=== PATIENT | male | born 1985 | race Asian ===

== ENCOUNTER 2017-03-28 13:01 | Emergency (ER) | payer BC, OTHER ==
--- NOTE | 2017-03-28 13:36 | ERPHSYRPT ---
- History of Present Illness Time Seen by Provider: 03/28/17 13:26 Source: patient Exam Limitations: no limitations Patient Subjective Stated Complaint: cough, fever, body aches since wednesday Triage Nursing Assessment: c/o body aches and cough for two days. states chest hurts very bad when he coughs. skin w/d, color normal, resp easy. states has coughed up yellow sputum. Physician History: 31-year-old male arrives with complaint of cough fever congestion generalized aches symptoms for 2 days. Patient states his cough is been productive of dark yellow sputum. No vomiting no diarrhea. Past medical history is negative. Past surgical history is negative. Social history positive tobacco use. Timing/Duration: day(s) (2 days) Severity: moderate Modifying Factors: Improves With: nothing Associated Symptoms: cough, fever, malaise, No nausea, No vomiting, No abdominal pain, No shortness of breath, No heartburn, No diaphoresis, No chest pain, No headaches, No loss of appetite, No rash, No syncope, No seizure, No weakness Allergies/Adverse Reactions: No Known Drug Allergies Allergy (Unverified 03/28/17 13:14) Hx Tetanus, Diphtheria Vaccination/Date Given: No Hx Influenza Vaccination/Date Given: No Hx Pneumococcal Vaccination/Date Given: No - Review of Systems Constitutional: Fever, Malaise, No Chills, No Fatigue, No Lethargy, No Night Sweats, No Weakness, No Weight Loss Eyes: No Symptoms Ears, Nose, & Throat: Nose Congestion, Nose Discharge, No Ear Pain, No Ear Discharge, No Hearing Changes, No Tinnitus, No Sinus Drainage, No Epistaxis, No Mouth Pain, No Mouth Swelling, No Loose Teeth, No Throat Pain, No Throat Swelling, No Hoarse, No Painful Swallowing, No Snoring, No Stridor Respiratory: Cough Cardiac: No Chest Pain, No Edema, No Syncope Abdominal/Gastrointestinal: No Abdominal Pain, No Nausea, No Vomiting, No Diarrhea Genitourinary Symptoms: No Dysuria Musculoskeletal: Myalgias, No Arthralgias, No Back Pain, No Neck Pain, No Deformity, No Fall, No Injury, No Joint Redness, No Joint Pain, No Joint Swelling Skin: No Rash Neurological: No Dizziness, No Focal Weakness, No Sensory Changes Psychological: No Symptoms Endocrine: No Symptoms All Other Systems: Reviewed and Negative - Past Medical History Pertinent Past Medical History: No - Past Surgical History Past Surgical History: No - Social History Smoking Status: Current every day smoker How long have you smoked: 10 Exposure to second hand smoke: No Drug Use: none Patient Lives Alone: No - Nursing Vital Signs Nursing Vital Signs: Initial Vital Signs Temperature 98.7 F 03/28/17 13:08 Pulse Rate 60 03/28/17 13:08 Respiratory Rate 16 03/28/17 13:08 Blood Pressure 123/68 03/28/17 13:08 O2 Sat by Pulse Oximetry 100 03/28/17 13:08 Pain Scale Pain Intensity 6 - Physical Exam General Appearance: mild distress Eye Exam: PERRL/EOMI, eyes nml inspection Ears, Nose, Throat Exam: normal ENT inspection, TMs normal, pharynx normal, moist mucous membranes Neck Exam: normal inspection, non-tender, supple, full range of motion Respiratory Exam: normal breath sounds, lungs clear, No respiratory distress Cardiovascular Exam: regular rate/rhythm, normal heart sounds, normal peripheral pulses Gastrointestinal/Abdomen Exam: soft, normal bowel sounds, No tenderness, No mass Back Exam: normal inspection, normal range of motion, No CVA tenderness, No vertebral tenderness Extremity Exam: normal inspection, normal range of motion, pelvis stable Neurologic Exam: alert, oriented x 3, cooperative, normal mood/affect, nml cerebellar function, nml station & gait, sensation nml, No motor deficits Skin Exam: normal color, warm, dry, No rash Lymphatic Exam: No adenopathy SpO2 Interpretation: normal (100%) SpO2: 100 Oxygen Delivery: Room Air - Course Nursing assessment & vital signs reviewed: Yes - Radiology Exams Chest X-ray Interpretation: Interpreted by me, Other (no acute disease process) Ordered Tests: Active Orders 24 hr Category Date Time Status CHEST 1 VIEW (PORTABLE) Stat Exams 03/28/17 13:31 Taken - Progress Progress: improved Progress Note: 03/28/17 14:02 31-year-old male arrives with complaint of cough fever congestion generalized aches symptoms for 2 days. No vomiting no diarrhea Chest x-ray unremarkable. This is a height of the flu symptoms symptoms are classic for the flu Will treat patient for influenza with Tamiflu. Will also write for Zithromax as the patient is complaining of a dark colored sputum. - Departure Time of Disposition: 14:03 Departure Disposition: Home Clinical Impression: Influenza, Bronchitis Condition: Fair Critical Care Time: No Referrals: Provider,Unknown [Primary Care Provider] - Instructions: Cough, Adult (DC) Additional Instructions: Return home. Plenty of fluids. Zithromax [id number] as directed. Tamiflu 75 mg orally twice a day for 5 days. Tylenol every 4 hours as needed for pain or temperature greater than 100.5. Follow-up with your family doctor if symptoms are worse no better in 48 hours or persist longer than 72 hours. Return for acute distress or for severe symptoms. Prescriptions: Azithromycin 250 mg [Zithromax 250 MG TABLET] 250 mg PO ZPACK #6 tablet Oseltamivir 75 mg [Tamiflu 75MG Capsule] 75 mg PO BID #10 cap
[2017-03-28 14:00] VITALS: BP 104/48
[2017-03-28 14:05] VITALS: O2SAT 100
[2017-03-28 14:10] VITALS: PULSE 68
--- NOTE | 2017-03-28 20:56 | XRAY ---
Indication: Cough. Comparison: None Portable chest demonstrates normal heart, lungs, and bony thorax.
== END 2017-03-28 14:12 | disposition home or self-care (01) ==
LOC: ED 13:01
DX: J11.1 Influenza due to unidentified influenza virus with other respiratory manifestations (principal); J40 Bronchitis, not specified as acute or chronic; Z72.0 Tobacco use
CPT/HCPCS: 71045; 99281

== ENCOUNTER 2019-02-25 18:02 | Emergency (ER) | payer BC, OTHER ==
[2019-02-25] MEDS ORDERED: Zofran 4 MG/2 ML VIAL IV ONE (18:08)
[2019-02-25] MEDS ORDERED: BABY ASPIRIN 81 MG CHEW PO ONE (18:08)
[2019-02-25] MEDS ORDERED: Sodium Chloride 0.9% 1000 ML 1,000 ML IV STA (18:08)
[2019-02-25 18:14] VITALS: O2SAT 98
--- NOTE | 2019-02-25 18:15 | ERPHSYRPT ---
- History of Present Illness Time Seen by Provider: 02/25/19 18:05 Source: patient Exam Limitations: no limitations Physician History: Patient is here with cough, mild SOB, and chest pain. He describes URI like symptoms. He did not get a flu shot. He describes his chest pain as mid-sternal and very mild. Location: chest, mid-sternal Quality: sharp Radiation: none Severity: mild Duration: 5 days Timing: constant Modifying factors/associated signs and symptoms: OTC medication Allergies/Adverse Reactions: No Known Drug Allergies Allergy (Verified 02/25/19 18:14) Home Medications: No Reportable Medications [No Reported Medications] 02/25/19 [History] Hx Tetanus, Diphtheria Vaccination/Date Given: No Hx Influenza Vaccination/Date Given: No Hx Pneumococcal Vaccination/Date Given: No - Review of Systems Constitutional: No Fever, No Chills Eyes: No Symptoms Ears, Nose, & Throat: No Symptoms Respiratory: Cough, No Dyspnea Cardiac: No Chest Pain, No Edema, No Syncope Abdominal/Gastrointestinal: No Abdominal Pain, No Nausea, No Vomiting, No Diarrhea Genitourinary Symptoms: No Dysuria Musculoskeletal: No Back Pain, No Neck Pain Skin: No Rash Neurological: No Dizziness, No Focal Weakness, No Sensory Changes Psychological: No Symptoms Endocrine: No Symptoms All Other Systems: Reviewed and Negative - Past Medical History Pertinent Past Medical History: No - Past Surgical History Past Surgical History: No - Social History Smoking Status: Current every day smoker How long have you smoked: 10 Exposure to second hand smoke: No Drug Use: none Patient Lives Alone: No - Nursing Vital Signs Nursing Vital Signs: Initial Vital Signs O2 Sat by Pulse Oximetry 98 02/25/19 18:08 Pain Scale Pain Intensity 2 - Physical Exam General Appearance: no apparent distress, alert Eye Exam: PERRL/EOMI, eyes nml inspection Ears, Nose, Throat Exam: normal ENT inspection, TMs normal, pharynx normal, moist mucous membranes Neck Exam: normal inspection, non-tender, supple, full range of motion Respiratory Exam: normal breath sounds, lungs clear, No respiratory distress Cardiovascular Exam: regular rate/rhythm, normal heart sounds Gastrointestinal/Abdomen Exam: soft, No tenderness Back Exam: normal inspection, No CVA tenderness, No vertebral tenderness Extremity Exam: normal inspection, normal range of motion Neurologic Exam: alert, oriented x 3, cooperative, normal mood/affect, sensation nml, No motor deficits Skin Exam: normal color, warm, dry, No rash Lymphatic Exam: No adenopathy Ordered Tests: Active Orders 24 hr Category Date Time Status Rehab Therapist STAT Care 02/25/19 18:09 Active EKG-ER Only STAT Care 02/25/19 18:08 Active IV Insertion STAT Care 02/25/19 18:08 Active Pulse Oximetry (ED) STAT Care 02/25/19 18:08 Active CHEST 2 VIEWS (PA AND LAT) Stat Exams 02/25/19 18:09 Completed CBC W DIFF Stat Lab 02/25/19 18:27 Completed CMP Stat Lab 02/25/19 18:27 Completed TROPONIN Q3H Lab 02/25/19 18:32 Completed TROPONIN Q3H Lab 02/25/19 21:15 Ordered EKG STAT RT 02/25/19 19:11 Active Medication Summary Discontinued Medications Generic Name Dose Route Start Last Admin Trade Name Freq PRN Reason Stop Dose Admin Aspirin 324 mg 02/25/19 18:08 02/25/19 18:31 Baby Aspirin 81 Mg Chew PO 02/25/19 18:09 324 mg STAT ONE Administration Aspirin Confirm 02/25/19 18:27 Baby Aspirin 81 Mg Chew Administered 02/25/19 18:28 Dose 324 mg .ROUTE .STK-MED ONE Sodium Chloride 1,000 mls @ 999 mls/hr 02/25/19 18:08 02/25/19 19:38 Sodium Chloride 0.9% 1000 Ml IV 02/25/19 19:08 Infused .Q1H1M STA Infusion Sodium Chloride Confirm 02/25/19 18:28 Sodium Chloride 0.9% 1000 Ml Administered 02/25/19 18:29 Dose 1,000 mls @ ud .ROUTE .STK-MED ONE Ondansetron HCl 4 mg 02/25/19 18:08 02/25/19 18:31 Zofran 4 Mg/2 Ml Vial IV 02/25/19 18:09 4 mg STAT ONE Administration Ondansetron HCl Confirm 02/25/19 18:27 Zofran 4 Mg/2 Ml Vial Administered 02/25/19 18:28 Dose 4 mg .ROUTE .STK-MED ONE Lab/Rad Data: Laboratory Result Diagrams 02/25/19 18:27 02/25/19 18:27 Laboratory Results 01/01/0402/25/19 02/25/19 Range/Units 18:32 18:27 18:27 WBC (4.0-10.5) K/mm3 RBC (4.1-5.6) M/mm3 Hgb (12.5-18.0) gm/dl Hct (42-50) % MCV (78-100) fl MCH (26-32) pg MCHC (32-36) g/dl RDW (11.5-14.0) % Plt Count (150-450) K/mm3 MPV (7.5-11.0) fl Gran % (36.0-66.0) % Eos # (Auto) (0-0.5) Absolute Lymphs (auto) (1.0-4.6) Absolute Monos (auto) (0.0-1.3) Lymphocytes % (24.0-44.0) % Monocytes % (0.0-12.0) % Eosinophils % (0.00-5.0) % Basophils % (0.0-0.4) % Absolute Granulocytes (1.4-6.9) Basophils # (0-0.4) Sodium 142 (137-145) mmol/L Potassium 3.6 (3.5-5.1) mmol/L Chloride 106 (98-107) mmol/L Carbon Dioxide 30 (22-30) mmol/L Anion Gap 10.0 (5-15) MEQ/L BUN 15 (9-20) mg/dL Creatinine 0.76 (0.66-1.25) mg/dL Estimated GFR > 60.0 ML/MIN Glucose 120 H (74-106) mg/dL Calcium 9.4 (8.4-10.2) mg/dL Total Bilirubin 0.30 (0.2-1.3) mg/dL AST 24 (17-59) U/L ALT 19 (0-50) U/L Alkaline Phosphatase 66 (38-126) U/L Troponin I < 0.012 (0.000-0.034) ng/mL Serum Total Protein 7.4 (6.3-8.2) g/dL Albumin 4.2 (3.5-5.0) g/dL Influenza Type A Ag NEGATIVE (NEGATIVE) Influenza Type B Ag NEGATIVE (NEGATIVE) RSV (PCR) NEGATIVE (Negative) 01/11/20 Range/Units 18:27 WBC 5.5 (4.0-10.5) K/mm3 RBC 4.34 (4.1-5.6) M/mm3 Hgb 13.2 (12.5-18.0) gm/dl Hct 39.1 L (42-50) % MCV 90.1 (78-100) fl MCH 30.4 (26-32) pg MCHC 33.8 (32-36) g/dl RDW 12.1 (11.5-14.0) % Plt Count 209 (150-450) K/mm3 MPV 9.3 (7.5-11.0) fl Gran % 66.4 H (36.0-66.0) % Eos # (Auto) 0.10 (0-0.5) Absolute Lymphs (auto) 1.21 (1.0-4.6) Absolute Monos (auto) 0.50 (0.0-1.3) Lymphocytes % 22.2 L (24.0-44.0) % Monocytes % 9.2 (0.0-12.0) % Eosinophils % 1.8 (0.00-5.0) % Basophils % 0.4 (0.0-0.4) % Absolute Granulocytes 3.63 (1.4-6.9) Basophils # 0.02 (0-0.4) Sodium (137-145) mmol/L Potassium (3.5-5.1) mmol/L Chloride (98-107) mmol/L Carbon Dioxide (22-30) mmol/L Anion Gap (5-15) MEQ/L BUN (9-20) mg/dL Creatinine (0.66-1.25) mg/dL Estimated GFR ML/MIN Glucose (74-106) mg/dL Calcium (8.4-10.2) mg/dL Total Bilirubin (0.2-1.3) mg/dL AST (17-59) U/L ALT (0-50) U/L Alkaline Phosphatase (38-126) U/L Troponin I (0.000-0.034) ng/mL Serum Total Protein (6.3-8.2) g/dL Albumin (3.5-5.0) g/dL Influenza Type A Ag (NEGATIVE) Influenza Type B Ag (NEGATIVE) RSV (PCR) (Negative) - Progress Progress: improved Air Movement: good Progress Note: 02/25/19 18:16 Diff dx MS, STEMI, infection, flu, - We will obtain basic labs, fluids, EKG, troponin, chest x-ray - I feel comfortable with one time negative troponin given symptoms have improved and started greater then 6 hours ago. - O2 saturations consistently greater than 95%. - CXR shows no pneumonia, pneumothorax - my read - no other obvious lab abnormalities EKG read as "probable acute inferior myocardial infarction" by computer reading. Patient's clinical picture does not fit an acute STEMI. This is most likely j point elevation given his age and symptoms on my reading of the EKG. However, we will send a troponin and re check an EKG to be sure. 02/25/19 19:30 REPEAT EKG: NSR. my read. Read as normal via computer read. 02/25/19 20:01 Patient feel improved. Work up is largely negative. Patient will need close follow up with PCP. Return here for new or changing symptoms. Plan of care was discussed with patient and patients family: all questions answered. They are agreeable to be discharged home and both verbal and printed discharge instructions were provided. The patient and patients family agreed to seek outpatient follow up as discussed. They were given strict instructions to return to the emergency department for worsening symptoms or any other emergent concerns. They verbalized understanding. - Departure Departure Disposition: Home Clinical Impression: Bronchitis Condition: Stable Critical Care Time: No Referrals: DOCTOR,NO FAMILY [Primary Care Provider] - Instructions: Cough, Adult (DC)
[2019-02-25] MEDS ORDERED: Zofran 4 MG/2 ML VIAL ONE (18:27)
[2019-02-25] MEDS ORDERED: BABY ASPIRIN 81 MG CHEW ONE (18:27)
[2019-02-25] MEDS ORDERED: Sodium Chloride 0.9% 1000 ML 1,000 ML ONE (18:28)
[2019-02-25 18:30] LABS: Absolute Neutrophil Ct (ANC) 3.63 (1.4-6.9); BASOPHIL % 0.4 % (0.0-0.4); Basophil (Absolute #) 0.02 (0-0.4); Eosinophil % 1.8 % (0.00-5.0); Hematocrit 39.1 % (42-50); Hemoglobin 13.2 gm/dl (12.5-18.0); Lymphocyte (Absolute #) 1.21 (1.0-4.6); Lymphocytes % 22.2 % (24.0-44.0); Mean Cell Volume 90.1 fl (78-100); Mean Corpuscular Hemoglobin 30.4 pg (26-32); Mean Corpuscular Hgb Concent. 33.8 g/dl (32-36); Mean Platelet Volume 9.3 fl (7.5-11.0); Monocytes % 9.2 % (0.0-12.0); Neutrophil % 66.4 % (36.0-66.0); Platelet Count 209 K/mm3 (150-450); Red Blood Count 4.34 M/mm3 (4.1-5.6); Red Cell Distribution Width 12.1 % (11.5-14.0); White Blood Count 5.5 K/mm3 (4.0-10.5)
[2019-02-25 18:41] LABS: ALBUMIN 4.2 g/dL (3.5-5.0); ALKALINE PHOSPHATASE 66 U/L (38-126); BLOOD UREA NITROGEN 15 mg/dL (9-20); CHLORIDE 106 mmol/L (98-107); Calcium 9.4 mg/dL (8.4-10.2); Carbon Dioxide 30 mmol/L (22-30); Creatinine 1 0.76 mg/dL (0.66-1.25); Glucose 120 mg/dL (74-106); Potassium 3.6 mmol/L (3.5-5.1); SGOT/AST 24 U/L (17-59); SGPT/ALT 19 U/L (0-50); SODIUM 142 mmol/L (137-145); Total Protein 7.4 g/dL (6.3-8.2)
[2019-02-25 19:11] LABS: INFLUENZA A NEGATIVE (NEGATIVE); INFLUENZA B NEGATIVE (NEGATIVE); RESPIRATORY SYNCTIAL VIRUS NEGATIVE (Negative)
[2019-02-25 19:48] VITALS: BP 109/60; PULSE 54
--- NOTE | 2019-02-25 19:57 | XRAY ---
Indication: Chest pain 5 days. Comparison: March 28, 2017. PA/lateral chest again demonstrates normal heart, lungs, and bony thorax.
== END 2019-02-25 19:49 | disposition home or self-care (01) ==
LOC: ED 18:02
DX: J40 Bronchitis, not specified as acute or chronic (principal)
CPT/HCPCS: 36415; 71046; 80053; 84484; 85025; 87631; 93005; 93041; 94760; 96360; 96374; 99284; J2405; A9270-GY